=== PATIENT | male | born 1995 | race Caucasian/White ===

== ENCOUNTER 2017-02-18 14:32 | Emergency (ER) | payer BC ==
[~2017-02-18] VITALS: Ht 188 cm; Wt 136.1 kg
--- NOTE | ~2017-02-18 | EKG ---
PATIENT: DORIAN SPEAR UNIT #: [id number] Ventricular Rate: 89 BPM Atrial Rate: 89 BPM P-R Interval: 130 ms QRS Duration: 90 ms Q-T Interval: 330 ms QTC Calculation(Bezet): 401 ms P [place]: 42 degrees Calculated R [place]: 49 degrees Calculated T [place]: 35 degrees Diagnosis Line: Normal sinus rhythm with sinus arrhythmia Diagnosis Line: Normal ECG Diagnosis Line: When compared with ECG of 21-JAN-2012 21:07, Diagnosis Line: No significant change was found Diagnosis Line: Confirmed by MORE WHITFIELD MD ([id number]) on 02/18/2017 Diagnosis Line: 6:35:41 PM INTERPRETING MD: ROSEANN VICENTE
--- NOTE | ~2017-02-18 | CR72 ---
[facility] A Service of [facility] & [facility] / [facility] RADIOLOGY TEXT RESULTS PATIENT: DORIAN SPEAR LOCATION: [facility] : [birth year] UNIT #: [id number] AGE: [address]: Andrew Cornejo MD SEX: M ORDER DR: [id number] [facility] [address] [place] [place], [place] [address] [id number] E MR#: [id number] Acc #: [id number] NAME: DORIAN SPEAR : 1995 SEX: M STUDY DATE/TIME: 02/18/2017 16:13 UNIT: [facility] ROOM: STUDY DESCRIPTION: CR Chest Single View Portable Attending Physician: Andrew Cornejo M.D. Ordering Physician: Andrew Cornejo M.D. Primary Care Physician: Primary Care Physician No MEDICAL IMAGING REPORT This report is preliminary unless electronic signature is present EXAM Portable chest HISTORY Chest pain for 4 days. Comparison 09/05/2013. FINDINGS A single AP portable view of the chest shows both lungs to be clear. The heart is normal in size. The mediastinal contour is normal. No significant bone abnormalities are seen. IMPRESSION Normal portable chest. Dictated by... Sola Duque M.D. THIS IS AN ELECTRONICALLY VERIFIED REPORT Sola Duque M.D. at 02/19/2017 7:33 AM Irma TD: 02/19/2017 02:31 JOB #: [id number] MEDICAL IMAGING REPORT Page 1 of 1 COPY
[~2017-02-18 14:32] MED LIST: AFRIN NASAL SPR15 ML; CIPRO PO; CYPROHEPTADINE H4 MG PO; FLEXERIL10 MG PO; FOCALIN XR PO; IBUPROFEN PO; MEDROL DOSEPAK4 MG PO; MUCINEX PO; NAPROXEN PO; NO MEDICATIONS; PREDNISONE PO; PYRIDIUM PO; ROBAXIN500 MG PO; ROBITUSSIN A-C S5 ML PO; TYLENOL #3 PO; VOLTAREN75 MG PO; Z PAK; ZITHROMAX PO; ZYRTEC-D TABLE1 EACH PO
[2017-02-18 15:40] LABS: BASOPHIL# 0.1 X10e3 (0-0.3); BASOPHIL% 0.7 % (0-2.5); EOSINOPHIL# 0.6 X10e3 (0-0.7); EOSINOPHIL% 5.4 % (0.0-7.0); HEMATOCRIT 43.5 % (38.0-50.0); HEMOGLOBIN 14.2 gm/dL (13.0-16.0); LYMPHOCYTE# 2.1 X10e3 (1.0-3.5); LYMPHOCYTE% 18.9 % (17.0-45.0); MEAN CELL VOLUME 86.1 FL (83-96); MEAN CORPUSCULAR HEMOGLOBIN 28.1 PG (28-34); MEAN CORPUSCULAR HGB CONC 32.6 g/dL (30-36); MEAN PLATELET VOLUME 8.1 FL (6.5-11.5); MONOCYTE# 0.7 X10e3 (0-1.0); MONOCYTE% 6.1 % (3.0-12.0); NEUTROPHIL# 7.6 X10e3 (1.5-7.1); NEUTROPHIL% 68.9 % (40-75); PLATELET COUNT 323 X10e3 (140-420); RED BLOOD COUNT 5.05 X10e (3.90-5.60); RED CELL DISTRIBUTION WIDTH 14.2 % (11.0-15.5); WHITE BLOOD COUNT 11.1 X10e3 (4.0-10.5)
[2017-02-18 15:43] LABS: DIFF IND NO
[2017-02-18 15:55] LABS: POC - CKMB 1.2 ng/mL (0.0-7.9); POC - TROPONIN <0.05 ng/mL (<=0.05)
[2017-02-18 16:10] LABS: BUN/CREATININE RATIO 18.75; CALCIUM SERUM 9.3 mg/dL (8.4-10.2); CREATININE SERUM 0.8 mg/dL (0.6-1.4); POTASSIUM 4.1 mmol/L (3.5-5.1)
== END 2017-02-18 17:14 | disposition home or self-care (01) ==
LOC: CED 14:32
PROVIDERS: Emergency Medicine
DX: R07.89 Other chest pain (principal); F17.210 Nicotine dependence, cigarettes, uncomplicated
CPT/HCPCS: 36415; 71010; 80048; 82553; 84484; 85025; 93005; 99285